=== PATIENT | female | born 1930 | race Caucasian/White ===

== ENCOUNTER 2017-11-04 14:43 | Outpatient (CLI) | payer MEDICARE | END 2017-11-04 14:44 | disposition critical access hospital (66) | LOC: EMS 14:43 | PROVIDERS: ATTEND Surgery | DX: R55 Syncope and collapse (principal) | CPT/HCPCS: A0425; A0427 ==

== ENCOUNTER 2017-11-04 15:15 | Observation (INO) | payer MEDICARE ==
--- NOTE | 2017-11-04 15:38 | ED Physician Documentation ---
PD HPI SYNCOPE - Stated complaint Stated Complaint: SYNCOPE - Chief complaint Chief Complaint: Cardiac - History obtained from History obtained from: Patient, EMS - History of Present Illness Witnessed: Witnessed Timing - onset: Today Duration: Minutes Preceding symptoms: Light headed Associated symptoms: Nausea / vomiting Contributing factors: No: Recent med change, Decreased PO intake, Emotional upset, Just stood up Injury occurred: None Similar symptoms before: Has not had sx before Recently seen: Not recently seen - Additional information Additional information: Patient is an 86 year old female with a history of htn and dyslipidemia who is presenting to the emergency department for a syncopal episode. Patient states that she was playing cards with her friends. she got light headed/dizzy and then passed out. Patient states she does not know how long she was out for, but she had two episodes of emesis. ems was called andn patient was treated with zofran enroute. UPon initial evaluation in the emergency department patient was awake, alert an oriented and denied any complaints. 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 HEENT: Other - Present Medications Home Medications: Ambulatory Orders Medication Instructions Recorded Confirmed Simvastatin 20 mg PO QPM 11/04/17 11/04/17 Triamterene/Hydrochlorothiazid 1 cap PO DAILY 11/04/17 11/04/17 [Triamterene-Hctz 37.5-25 mg Cp] - Allergies Allergies/Adverse Reactions: Allergies Allergy/AdvReac Type Severity Reaction Status Date / Time No Known Drug Allergies Allergy Verified 11/04/17 15:31 - Social History Does the pt smoke?: No Smoking Status: Never smoker Does the pt drink ETOH?: No Does the pt have substance abuse?: No - Immunizations Immunizations are current?: Yes PD ED PE NORMAL - Vitals Vital signs reviewed: Yes - General General: Alert and oriented X 3, No acute distress - HEENT HEENT: Atraumatic - Cardiac Cardiac: RRR - Respiratory Respiratory: No respiratory distress - Abdomen Abdomen: Soft, Non tender, Non distended - Derm Derm: Normal color, Warm and dry - Extremities Extremities: No deformity - Neuro Neuro: Alert and oriented X 3 PD ED PE EXPANDED - HEENT HEENT: Dry mucous membranes Results - Vitals Vitals: Vital Signs - 24 hr 11/04/17 11/04/17 15:15 15:52 Temperature 36.0 C L Heart Rate 60 62 Respiratory 12 15 Rate Blood Pressure 156/71 H 148/69 H O2 Saturation 92 99 Oxygen O2 Source Room air - Labs Labs: Laboratory Tests 11/04/17 11/04/17 11/04/17 15:47 15:47 15:47 WBC 10.6 RBC 4.48 Hgb 14.7 Hct 43.1 MCV 96.2 MCH 32.7 H MCHC 34.0 RDW 12.2 Plt Count 205 MPV 7.4 L Neut # (Auto) 7.8 H Lymph # (Auto) 1.5 Peach # (Auto) 0.9 Eos # (Auto) 0.3 Baso # (Auto) 0.1 Absolute Nucleated RBC 0.00 Nucleated RBC % 0.0 Sodium 128 L Potassium 3.1 L Chloride 91 L Carbon Dioxide 29 Anion Gap 8.0 BUN 15 Creatinine 0.7 Estimated GFR (MDRD) 79 L Glucose 89 Calcium 9.4 Total Bilirubin 0.6 AST 26 ALT 22 Alkaline Phosphatase 66 Troponin I < 0.04 B-Natriuretic Peptide Total Protein 7.2 Albumin 3.8 Globulin 3.4 Albumin/Globulin Ratio 1.1 Lipase 86 H 11/04/17 15:47 WBC RBC Hgb Hct MCV MCH MCHC RDW Plt Count MPV Neut # (Auto) Lymph # (Auto) Peach # (Auto) Eos # (Auto) Baso # (Auto) Absolute Nucleated RBC Nucleated RBC % Sodium Potassium Chloride Carbon Dioxide Anion Gap BUN Creatinine Estimated GFR (MDRD) Glucose Calcium Total Bilirubin AST ALT Alkaline Phosphatase Troponin I B-Natriuretic Peptide 75 Total Protein Albumin Globulin Albumin/Globulin Ratio Lipase PD MEDICAL DECISION MAKING - ED course Complexity details: reviewed old records, reviewed results, re-evaluated patient , considered differential, d/w patient ED course: Patient was seen and examined at bedside. iV access was gained and labs were drawn. ekg was performed and showed no acute ischemic changes. labs were drawn and showed mild hyponatremia. patient could not be ruled out with parker selvin syncope rules. Hospitalist was contacted and the case was discussed with him. patient was placed in observation for further care. - Sepsis Event Vital Signs: Vital Signs - 24 hr 11/04/17 11/04/17 15:15 15:52 Temperature 36.0 C L Heart Rate 60 62 Respiratory 12 15 Rate Blood Pressure 156/71 H 148/69 H O2 Saturation 92 99 Oxygen O2 Source Room air Departure - Departure Disposition: ED Place in Observation Clinical Impression: Syncope Condition: Stable
[2017-11-04 15:51] LABS: BASOPHILS # (AUTO) 0.1 10^3/uL (0.0-0.1); BASOPHILS % (AUTO) 0.7 %; EOSINOPHILS # (AUTO) 0.3 10^3/uL (0.0-0.7); EOSINOPHILS % (AUTO) 2.8 %; HGB - HEMOGLOBIN 14.7 g/dL (12.0-16.0); LYMPHOCYTES # (AUTO) 1.5 10^3/uL (1.5-3.5); LYMPHOCYTES % (AUTO) 14.5 %; MEAN CORPUSCULAR HEMOGLOBIN 32.7 pg (27.0-31.0); MEAN CORPUSCULAR VOLUME 96.2 fL (81.0-99.0); MEAN PLATELET VOLUME 7.4 fL (7.9-10.8); MONOCYTES # (AUTO) 0.9 10^3/uL (0.0-1.0); MONOCYTES % (AUTO) 8.5 %; NEUTROPHILS # (AUTO) 7.8 10^3/uL (1.5-6.6); NEUTROPHILS % (AUTO) 73.5 %; PLT - PLATELET COUNT 205 10^3/uL (130-450); RED BLOOD COUNT 4.48 10^6/uL (4.20-5.40); RED CELL DISTRIBUTION WIDTH 12.2 % (12.0-15.0); WHITE BLOOD COUNT 10.6 x10^3/uL (4.8-10.8)
[2017-11-04 16:04] LABS: ALBUMIN 3.8 g/dL (3.2-5.5); ALBUMIN/GLOBULIN RATIO 1.1 (1.0-2.2); BILIRUBIN,TOTAL 0.6 mg/dL (0.2-1.0); CALCIUM 9.4 mg/dL (8.5-10.3); CREATININE 0.7 mg/dL (0.4-1.0); TOTAL PROTEIN 7.2 g/dL (6.7-8.2)
[2017-11-04] MEDS ORDERED: ACETAMINOPHEN 325 MG TABLET PO PRN (17:11)
[2017-11-04] MEDS ORDERED: ONDANSETRON 4 MG/2 ML VIAL IVP PRN (17:11)
[2017-11-04] MEDS ORDERED: SODIUM CHLORIDE FLUSH 0.9% 10 ML SYRINGE IVP PRN (17:11)
--- NOTE | 2017-11-04 17:27 | HISTORY & PHYSICAL EXAMINATION ---
Chief Complaint - Chief Complaint Chief Complaint: syncope History of Present Illness - Admitted From Admitted From:: ER - History Obtained From History obtained from: pt - History of Present Illness HPI Comment/Other: Ms. Centeno is a 86-yrs-old female with a H significance for HTN and HLD, who present ER for complaint of syncope. Pt report this afternoon after lunch, she played cards for game with her friends at the table. She suddenly felt dizziness and lost consciousness for about 10 seconds. Her friends witnessed this happened. After syncope, she had twice of nausea and vomiting. Pt report this is her first time she had syncope. She does not have seizure history. She had her lunch before this happened. She did not think it was low sugar in her blood stream. She took her one HTN pill at [employer] for many years. pt denies chest pain, palpitation, shortness of breath, headache, any focal neurological deficits. she denies any injury from this accident. EKG and troponine are unremarkable. Na is 128, potassium 3.1 today. Pt is afebrile, and hemodynamical stable in the ER. Pt is admitted in observation unit for syncope workup. 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 She had four her own children. She also adopted one daughter. One of her sons was from stroke. She is living in the [facility]. Living arrangement: At home Living Situation: Alone Social History Notes: pt report she never smoking, alcohol and drug problem. - Substance History Use: Uses substance without health or social issues: NONE Abuse: Recurrent use of substance despite neg consequences: NONE - POLST POLST Status: DNR Meds/Allgy - Home Medications Home Medications: Ambulatory Orders Medication Instructions Recorded Confirmed Simvastatin 20 mg PO QPM 11/04/17 11/04/17 Triamterene/Hydrochlorothiazid 1 cap PO DAILY 11/04/17 11/04/17 [Triamterene-Hctz 37.5-25 mg Cp] - Allergies Allergies/Adverse Reactions: Allergies Allergy/AdvReac Type Severity Reaction Status Date / Time No Known Drug Allergies Allergy Verified 11/04/17 15:31 Review of Systems - Constitutional Constitutional: denies: Fatigue, Fever, Chills, Malaise, Weakness, Poor appetite , Diaphoresis, Night sweats - Eyes Eyes: denies: Pain, Irritation, Amaurosis, Blurred vision, Spots in vision, Field loss, Vision loss, Dipolpia - Ears, Nose & Throat Ears, Nose & Throat: denies: Ear pain, Hearing loss, Hearing aids, Tinnitus, Vertigo, Nasal pain, Nasal discharge, Nosebleeds, Nasal obstruction, Nasal congestion, Postnasal drainage, Dentures, Sore throat, Hoarseness, Mouth lesions , Bleeding gums, Dental decay, Dental pain - Cardiovascular Cariovascular: reports: Syncope. denies: Irregular heart rate, Palpitations, Chest pain, Edema, Lightheadedness, Exertional dyspnea, Decr. exercise tolerance , Orthopnea - Respiratory Respiratory: denies: Cough, Sputum production, Wheezing, Snoring, Hemoptysis, Orthopnea, SOB at rest, SOB with exertion, Apnea - Gastrointestinal Gastrointestinal: denies: Abdominal pain, Abdominal distention, Constipation, Diarrhea, Change in bowel habits, Rectal bleeding, Black stools, Bloody stools, Nausea, Vomiting, Bile emesis, Mark blood emesis, Coffee grounds emesis, Reflux /heartburn - Genitourinary Genitourinary: denies: Dysuria, Frequency, Urgency, Hematuria, Incontinence, Flank pain, Nocturia, Urethral discharge - Musculoskeletal Musculoskeletal: denies: Muscle pain, Back pain, Muscle aches, Stiffness, Limited range of motion, Muscle weakness, Gout, Joint pain - Integumentary Integumentary: denies: Rash, Pruritis, Lesions, Dryness, Lumps, Acne, Pigment changes, Nail changes - Neurological Neurological: denies: General weakness, Focal weakness, Headache, Dizziness, Numbness, Memory problems, Pre-existing deficit, Abnormal gait, Seizures, Incoordination, Slurred speech - Psychiatric Psychiatric: denies: Depression, Anxiety, Suicidal, Delusions, Hallucinations, Homicidal - Endocrine Endocrine: denies: Polyuria, Polydypsia, Polyphagia, Intolerance to cold - Hematologic/Lymphatic Hematologic/Lymphatic: denies: Anemia, Bruising, Petechiae, Blood clots, Lymphadenopathy, Bleeding tendencies Exam - Vital Signs Reviewed Vital Signs: Yes Vital Signs: Vital Signs x48h Temp Pulse Resp BP Pulse Ox 11/04/17 15:52 62 15 148/69 H 99 11/04/17 15:15 36.0 C L 60 12 156/71 H 92 - Physical Exam General Appearance: positive: No acute distress, Alert. negative: Lethargic Eyes Bilateral: positive: Normal inspection, PERRL, No lid inflammation, Conjunctivae nml ENT: positive: ENT inspection nml, Pharynx nml, No signs of dehydration. negative: Purulent nasal drainage, Pharyngeal erythema, Oral lesions Neck: positive: Nml inspection, Thyroid nml, No JVD, Trachea midline. negative : Thyromegaly, Lymphadenopathy (R), Lymphadenopathy (L), Stiff neck, Carotid bruit, Swelling/bruising, Tracheal deviation Respiratory: positive: Chest non-tender, No respiratory distress, Breath sounds nml. negative: Wheezes, Rales, Rhonchi Cardiovascular: positive: Regular rate & rhythm, No murmur, No gallop. negative : Irregularly irregular, Extrasystoles, Tachycardia, Bradycardia, JVD present, Systolic murmur, Diastolic murmur Peripheral Pulses: positive: 2+ Abdomen: positive: Non-tender, No organomegaly, Nml bowel sounds, No distention. negative: Tenderness, Guarding, Rebound Back: positive: Nml inspection. negative: CVA tenderness (R), CVA tenderness (L ) Skin: positive: Color nml, No rash, Warm, Dry. negative: Cyanosis, Diaphoresis , Pallor Extremities: positive: Non-tender, Full ROM, Nml appearance. negative: Calf tenderness, Joint swelling, Patricia's sign/cords Neurologic/Psychiatric: positive: Oriented x3, Motor nml, Sensation nml, Mood/ affect nml. negative: Weakness, Sensory loss, Facial droop, Slurred/abnml speech, Depressed mood/affect Conclusion/Plan - Problem List (1) Syncope Conclusion/Plan: pt's troponin and EKG are unremarkable. Pt does not have any focal neurological deficit, no seizure, pt has no DM2, no low sugar issue. will check ECHO US of carotid pt does not have any headache, no any focal neurological deficit, also pt report she does not have balance issue, hold CT of head now. tele, vital monitor (2) Hyponatremia Conclusion/Plan: Na is 128 today. hold home HCTZ, add Lisinopril IVF NS at 75cc/h daily lab monitor (3) Hypokalemia Conclusion/Plan: K is 3.1 today. ER did not replace potassium. order 40meq po potassium Lab recheck (4) HTN (hypertension) Conclusion/Plan: slight elevated BP, hold HCTZ, add lisinopril vital monitor (5) HLD (hyperlipidemia) Conclusion/Plan: resume home Simvastatin (6) DVT prophylaxis Conclusion/Plan: SCD and Lovenox (7) Do not intubate, cardiopulmonary resuscitation (CPR)-only code status Conclusion/Plan: pt request DNR - Lab Results Fish Bones: 11/04/17 15:47 11/04/17 15:47 Core Measures - Anticipated LOS I expect patient to be DC'd or transferred within 96 hours.: Yes - DVT/VTE - Prophylaxis VTE/DVT Device ordered at admit?: Yes VTE/DVT Prophylaxis med ordered at admit?: Yes
[2017-11-04] MEDS ORDERED: POTASSIUM CHLORIDE 20 MEQ TABLET PO SCH (18:00)
[2017-11-04 18:20] LABS: BILIRUBIN,URINE NEGATIVE (NEGATIVE); GLUCOSE, URINE (UA) NEGATIVE (NEGATIVE); KETONES,URINE (UA) NEGATIVE (NEGATIVE); LEUKOCYTE ESTERASE, URINE TRACE (NEGATIVE); NITRITE,URINE NEGATIVE (NEGATIVE); OCCULT BLOOD,URINE NEGATIVE (NEGATIVE); PH,URINE 6.5 PH (5.0-7.5); PROTEIN,URINE NEGATIVE (NEGATIVE); UROBILINOGEN,URINE 0.2 (NORMAL) E.U./dL (NORMAL)
[2017-11-04 18:26] LABS: CLARITY,URINE CLEAR (CLEAR)
[2017-11-04 18:30] LABS: BACTERIA,URINE None Seen /HPF (None Seen); RBC,URINE None Seen /HPF (0-5); SQUAMOUS EPITHELIAL CELL,UR RARE Squamous (<= Few)
[2017-11-04] MEDS: SODIUM CHLORIDE 0.9% 1,000 ML IV SCH (18:52)
[2017-11-04] MEDS ORDERED: ATORVASTATIN 10 MG TABLET PO SCH (21:00)
--- NOTE | 2017-11-05 00:24 | Ultrasound Report ---
Procedure Date: 11/04/2017 Accession Number: [id number] / [id number] Procedure: US - Carotid Doppler Complete CPT Code: FULL RESULT: EXAM: BILATERAL CAROTID AND VERTEBRAL ARTERY DUPLEX DOPPLER ULTRASOUND: EXAM DATE: 11/04/2017 11:42 PM CLINICAL HISTORY: Syncope. COMPARISON: None. TECHNIQUE: Grayscale imaging, color Doppler, and duplex spectral Doppler were used to evaluate the carotid and vertebral arteries bilaterally. Static images were obtained. FINDINGS: Bilateral carotid plaquing, left greater than right, with no significant stenosis. Normal antegrade flow is present in bilateral vertebral arteries. VELOCITIES: Right: RCCA Prox: PSV 50.6 cm/sec. RCCA Dist: PSV 33.2 cm/sec, EDV 8.1 cm/sec. RECA: PSV 51.3 cm/sec. R Bulb: PSV 43 cm/sec, EDV 0.6 cm/sec, ICA/CCA ratio 1.3. LESLY Prox: PSV 37.3 cm/sec, EDV 8.1 cm/sec, ICA/CCA ratio 1.1. LESLY Mid: PSV 48.2 cm/sec, EDV 11.7 cm/sec, ICA/CCA ratio 1.5. LESLY Dist: PSV 52 cm/sec, EDV 14 cm/sec, ICA/CCA ratio 1.6. RVA: PSV 36.5 cm/sec. RVA flow direction: Antegrade. Left: LCCA Prox: PSV 103.8 cm/sec. LCCA Dist: PSV 45.7 cm/sec, EDV 7.1 cm/sec. LECA: PSV 47 cm/sec. L Bulb: PSV 39.9 cm/sec, EDV 7.7 cm/sec, ICA/CCA ratio 0.9. LICA Prox: PSV 40.2 cm/sec, EDV 9 cm/sec, ICA/CCA ratio 0.9. LICA Mid: PSV 53.5 cm/sec, EDV 14.9 cm/sec, ICA/CCA ratio 1.2. LICA Dist: PSV 36.2 cm/sec, EDV 9 cm/sec, ICA/CCA ratio 0.8. LVA: PSV 41.7 cm/sec. LVA flow direction: Antegrade. ICA diameter stenosis: Right: <50% by velocity and <70% by NASCET criteria. Left: <50% by velocity and <70% by NASCET criteria. IMPRESSION: 1. Bilateral carotid artery plaquing, left greater than right. 2. In the right carotid artery there are no elevated carotid artery velocities to suggest hemodynamically significant stenosis. 3. In the left carotid artery there are no elevated carotid artery velocities to suggest hemodynamically significant stenosis. 4. Normal antegrade flow is present in bilateral vertebral arteries. General Recommendations: Stenosis =50% ICA - Follow-up ultrasound 6-12 months Stenosis <50% ICA - High Risk Patient with plaque - Follow-up ultrasound 1-2 years Normal Study but High Risk Patient - Follow-up ultrasound 3-5 years Management recommendations and diagnostic criteria are based on current IAC endorsed standards in Carotid Artery Stenosis: Grayscale and Doppler Ultrasound Diagnosis. Validated velocity measurements with angiographic measurements and velocity criteria are extrapolated from diameter data as defined by the Society of Radiologists in Ultrasound Consensus Conference Radiology 2003; 229;340-346. RADIA
[2017-11-05] MEDS: SODIUM CHLORIDE FLUSH 0.9% 10 ML SYRINGE IVP SCH ×2 (00:40→08:22)
[2017-11-05 06:18] LABS: BASOPHILS # (AUTO) 0.1 10^3/uL (0.0-0.1); BASOPHILS % (AUTO) 0.9 %; EOSINOPHILS # (AUTO) 0.2 10^3/uL (0.0-0.7); EOSINOPHILS % (AUTO) 2.5 %; HGB - HEMOGLOBIN 14.4 g/dL (12.0-16.0); LYMPHOCYTES % (AUTO) 21.2 %; MEAN CORPUSCULAR HEMOGLOBIN 32.6 pg (27.0-31.0); MEAN CORPUSCULAR HGB CONC 34.5 g/dL (32.0-36.0); MEAN CORPUSCULAR VOLUME 94.4 fL (81.0-99.0); MEAN PLATELET VOLUME 7.4 fL (7.9-10.8); MONOCYTES % (AUTO) 10.4 %; PLT - PLATELET COUNT 205 10^3/uL (130-450); RED BLOOD COUNT 4.41 10^6/uL (4.20-5.40); RED CELL DISTRIBUTION WIDTH 12.3 % (12.0-15.0); WHITE BLOOD COUNT 9.3 x10^3/uL (4.8-10.8)
[2017-11-05 06:26] LABS: ALBUMIN 3.8 g/dL (3.2-5.5); ALBUMIN/GLOBULIN RATIO 1.3 (1.0-2.2); BILIRUBIN,TOTAL 0.7 mg/dL (0.2-1.0); CALCIUM 9.3 mg/dL (8.5-10.3); CREATININE 0.6 mg/dL (0.4-1.0); TOTAL PROTEIN 6.8 g/dL (6.7-8.2)
[2017-11-05] MEDS: SODIUM CHLORIDE 0.9% 1,000 ML IV SCH (08:27)
[2017-11-05] MEDS ORDERED: POLYETHYLENE GLYCOL 3350 17 GM PACKET PO SCH (09:00)
[2017-11-05] MEDS ORDERED: LISINOPRIL 5 MG TABLET PO SCH (09:00)
[2017-11-05] MEDS ORDERED: amLODIPine 5 MG TABLET PO SCH (09:00)
[2017-11-05] MEDS ORDERED: FAMOTIDINE 20 MG TABLET PO SCH (09:00)
[2017-11-05] MEDS ORDERED: ENOXAPARIN 40 MG/0.4 ML SYRINGE SUBQ SCH (09:00)
[2017-11-05] MEDS ORDERED: TRIAMT/HCTZ 37.5 MG/25 MG CAPSULE PO SCH (09:00)
--- NOTE | 2017-11-05 11:57 | Discharge Plan ---
Discharge Plan Disposition: 01 Home, Self Care Condition: Stable Prescriptions: amLODIPine [Norvasc] 5 mg PO DAILY #10 tablet Diet: Regular Activity Restrictions: Activity as Tolerated Shower Restrictions: No (fall precaution) Weight Bearing: Full Weight Instruction Topics: Syncope Causes, Syncope, Syncope Tx Prevent, Amlodipine tablets Additional Instructions or Follow Up instructions: You may follow up your PCP in one week. Your sodium was low when you came in the hospital, so blood pressure medication is switched to Amlodipine. Should your symptoms return or worsen, you may present ER or call 911 for help. No Smoking: If you smoke, Please STOP! Call for help. Follow-up with: Shivani Retana MD [Primary Care Provider] -
--- NOTE | 2017-11-05 12:03 | DISCHARGE SUMMARY ---
Discharge Summary Discharge Date: 11/05/17 Discharging Provider: CAMPOS Primary Care Provider: Shivani Macias Condition at Discharge: Stable Discharge Disposition: 01 Home, Self Care Discharge Facility Name: home - DIAGNOSES Admission Diagnoses: 1) Syncope (2) Hyponatremia (3) Hypokalemia (4) HTN (hypertension) (5) HLD (hyperlipidemia) Discharge Diagnoses with Status of Each Condition: 1) Syncope no more syncope. EKG is SR, no orthostatic hypotension, ECHO and US of Carotid are unremarkable. pt does not present any focal neurological deficit. pt did show hypokalemia and hyponatremia at the admission. Pt's home meds HCTZ is hold. pt is prescribed Amlodipine instead for d/c (2) Hyponatremia Na 134, hold HCTZ (3) Hypokalemia resolved (4) HTN (hypertension) stable, pt is prescribed Amlodipine, follow up PCP (5) HLD (hyperlipidemia) stable. - HPI History of Present Illness: Ms. Centeno is a 86-yrs-old female with a H significance for HTN and HLD, who present ER for complaint of syncope. Pt report this afternoon after lunch, she played cards for game with her friends at the table. She suddenly felt dizziness and lost consciousness for about 10 seconds. Her friends witnessed this happened. After syncope, she had twice of nausea and vomiting. Pt report this is her first time she had syncope. She does not have seizure history. She had her lunch before this happened. She did not think it was low sugar in her blood stream. She took her one HTN pill at [employer] for many years. pt denies chest pain, palpitation, shortness of breath, headache, any focal neurological deficits. she denies any injury from this accident. EKG and troponine are unremarkable. Na is 128, potassium 3.1 today. Pt is afebrile, and hemodynamical stable in the ER. Pt is admitted in observation unit for syncope workup. - ALLERGIES Allergies/Adverse Reactions: Allergies Allergy/AdvReac Type Severity Reaction Status Date / Time No Known Drug Allergies Allergy Verified 11/04/17 15:31 - MEDICATIONS Home Medications: Ambulatory Orders Medication Instructions Recorded Confirmed Simvastatin 20 mg PO QPM 11/04/17 11/04/17 amLODIPine [Norvasc] 5 mg PO DAILY #10 tablet 11/05/17 - PHYSICAL EXAM AT DISCHARGE General Appearance: positive: No acute distress, Alert. negative: Lethargic Eyes Bilateral: positive: Normal inspection, PERRL, No lid inflammation, Conjunctivae nml ENT: positive: ENT inspection nml, Pharynx nml, No signs of dehydration. negative: Purulent nasal drainage, Pharyngeal erythema, Oral lesions Neck: positive: Nml inspection, Thyroid nml, No JVD, Trachea midline. negative : Thyromegaly, Lymphadenopathy (R), Lymphadenopathy (L), Stiff neck, Swelling/ bruising, Tracheal deviation Respiratory: positive: Chest non-tender, No respiratory distress, Breath sounds nml. negative: Wheezes, Rales, Rhonchi Cardiovascular: positive: Regular rate & rhythm, No murmur, No gallop. negative : Irregularly irregular, Extrasystoles, Tachycardia, Bradycardia, JVD present, Systolic murmur, Diastolic murmur Peripheral Pulses: positive: 2+ Abdomen: positive: Non-tender, No organomegaly, Nml bowel sounds, No distention. negative: Tenderness, Guarding, Rebound Back: positive: Nml inspection. negative: CVA tenderness (R), CVA tenderness (L ) Skin: positive: Color nml, No rash, Warm, Dry. negative: Cyanosis, Diaphoresis , Pallor Extremities: positive: Non-tender, Full ROM, Nml appearance. negative: Calf tenderness, Joint swelling, Patricia's sign/cords Neurologic/Psychiatric: positive: Oriented x3, Motor nml, Sensation nml, Mood/ affect nml. negative: Weakness, Sensory loss, Facial droop, Slurred/abnml speech, Depressed mood/affect - LABS Result Diagrams: 11/05/17 06:05 11/05/17 06:05 - FOLLOW UP Follow Up: You may follow up your PCP in one week. Your sodium was low when you came in the hospital, so blood pressure medication is switched to Amlodipine. Should your symptoms return or worsen, you may present ER or call 911 for help. - TIME SPENT Time Spent in Discharge (Minutes): 50
[2017-11-05 15:30] VITALS: BP 158/81
== END 2017-11-05 15:58 | disposition home or self-care (01) ==
LOC: EDUNIT# → SUPCPDRO 15:15 → ED 15:15 → MS2 17:11 → OBS 21:04
PROVIDERS: ADMIT Nurse Practitioner Gerontology; ATTEND Nurse Practitioner Gerontology
DX: R55 Syncope and collapse (principal); R11.2 Nausea with vomiting, unspecified; E87.1 Hypo-osmolality and hyponatremia; E87.6 Hypokalemia; I10 Essential (primary) hypertension; E78.5 Hyperlipidemia, unspecified; Z79.899 Other long term (current) drug therapy; Z82.3 Family history of stroke; Z66 Do not resuscitate
CPT/HCPCS: 36415; 80053; 81001; 83690; 83735; 83880; 84484; 85025; 87086; 93005; 93306; 93880; 96372; 96374; 99283; 99284; A9270; G0378; J1650; 81003